=== PATIENT | male | born 1970 | race Caucasian/White ===

== ENCOUNTER 2016-08-08 13:23 | Emergency (ER) | payer SELFPAY ==
[~2016-08-08] VITALS: Ht 177.8 cm; Wt 83.5 kg
[2016-08-08 13:35] VITALS: BP 115/77
== END 2016-08-08 15:38 | disposition left against medical advice (07) ==
LOC: EMS 13:25
DX: R07.9 Chest pain, unspecified (principal); Z53.21 Procedure and treatment not carried out due to patient leaving prior to being seen by health care provider